=== PATIENT | female | born 1980 | race Caucasian/White ===

== ENCOUNTER 2016-11-07 12:28 | Outpatient (CLI) | payer MEDICAID ==
[~2016-11-07] VITALS: Ht 154.9 cm; Wt 67.2 kg
[~2016-11-07 12:28] MED LIST: PRENAT PO
[2016-11-07 12:44] VITALS: BP 132/58; PULSE 87; Ht 154.9 cm; Wt 67.2 kg
[2016-11-07 13:58] LABS: ADD UMIC YES; UR BILIRUBIN (Dip) NEGATIVE (NEGATIVE); UR BLOOD (Dip) NEGATIVE (NEGATIVE); UR COLOR LT. YELLOW (YELLOW); UR GLUCOSE (Dip) NEGATIVE (NEGATIVE); UR KETONES (Dip) NEGATIVE (NEGATIVE); UR LEUKOCYTE ESTERASE (Dip) 1+ (NEGATIVE); UR NITRITE (Dip) POSITIVE (NEGATIVE); UR TOTAL PROTEIN (Dip) NEGATIVE (NEGATIVE); UR UROBILINOGEN (Dip) 0.2 E.U./dL (0.1-1.0)
[2016-11-07 14:17] LABS: UR CLARITY HAZY (CLEAR)
[2016-11-07 14:19] LABS: UR BACTERIA MANY; UR SQUAMOUS EPITHELIAL CELL FEW; URINE RBCS NONE SEEN /HPF (0)
--- NOTE | 2016-11-07 14:56 | RADRPT ---
PROCEDURE: US OB AND ULTRASOUND CERVIX. CLINICAL INDICATION: Size and dates , labor TECHNIQUE: Multiple sonographic images of the pelvis and gravid uterus were obtained. The images were reviewed on a PACS workstation. Transvaginal images of the cervix were also obtained. COMPARISON: No prior studies are available for comparison. FINDINGS: The cervix is closed with a length of 3.8 cm. There is a single viable intrauterine gestation. Cardiac activity is present with 132 beats per min alla. There is a breech presentation. The placenta is posterior. There is no evidence for an abruption or placenta previa. There is a borderline increased amount of amniotic fluid with an AVA = 19.9 cm. Measurements were made in order to determine age. The results are as follows: BPD =7.3 cm HC =26.2 cm AC =24.9 cm FL =5.5 cm Estimated gestational age of approximately 29 weeks and 0 days based on ultrasound measurements. Clinical age: 27 weeks and 0 days. The estimated date of delivery is 01/23/2017, based on ultrasound measurements. The EFW = 1339 g, >97%, based on LMP age. RPTAT: AA IMPRESSION: Single viable intrauterine gestation of approximately 29 weeks and 0 days based on ultrasound measu rements. Cervix measures 3.8 cm in length. Larger than clinical age by 2 weeks. .Mikey Leon MD, Date Time Electronically viewed and signed by .Mikey Leon MD, MD on 11/07/2016 14:56 .S/
--- NOTE | 2016-11-07 14:56 | RADRPT ---
PROCEDURE: OB ultrasound for biophysical profile CLINICAL INDICATION: Biophysical profile. . labor TECHNIQUE: Multiple sonographic images of the pelvis were obtained. Transabdominal views are obta ined. COMPARISON: Pelvic ultrasound 08/03/15 FINDINGS: Single intrauterine gestation. Presentation: Breech Placenta: Posterior No evidence of placental abruption. No evidence of placenta previa. breathing movement = 2/2 tone = 2/2 motion = 2/2 AVA = 2/2 AVA = 19.9 cm heart rate: 142 beats per minute IMPRESSION: Single intrauterine gestation. Biophysical profile 02/21 Breech presentation. RPTAT: AADD .Duy Arteaga MD, Date Time Electronically viewed and signed by .Duy Arteaga MD, on 11/07/2016 14:56 .B/
--- NOTE | 2016-11-07 16:33 | PN ---
Date/Time of Note Date/Time of Note DATE: 11/07/16 TIME: 16:31 OB Subjective Subjective Subjective Patient is 4 para 2 at 27 weeks of gestation She presented with left-sided groin pain and suprapubic pain OB Objective Objective Objective OB ultrasound indicating estimated weight of 1339 g AVA 19.9 Biophysical profile 8 out of 8 Cervical length of 3.8 UA positive leukocyte esterase, positive nitrate HEENT: WNL Heart: Rhythm Normal Lungs: Clear, Equal Abdomen: WNL Extremities: Normal Reflexes: Normal Heart Rate: 140's Accelerations: Accelerations Present Decelerations: No Decelerations Varibility: Moderate Contractions on Admission: >10 Minutes Apart OB Assessment/Plan Other Assessment: 27 weeks of gestation with urinary tract infection Other plan: Prescription for Macrobid 100 mg was given to be taken twice a day for 7 days Patient was counseled to follow-up with her OB in 2-3 days MARILYN LEI MD Nov 07, 2016 16:33
== END 2016-11-07 15:50 | disposition home or self-care (01) ==
LOC: OBT 12:28 → L-D 12:30 → OBT 15:50
PROVIDERS: ATTEND Obstetrics & Gynecology
DX: O26.892 Other specified pregnancy related conditions, second trimester (principal); R10.32 Left lower quadrant pain; O09.522 Supervision of elderly multigravida, second trimester; Z3A.27 27 weeks gestation of pregnancy
CPT/HCPCS: 76815; 76817; 76818; 81001; Z7500; 81003; G0463